=== PATIENT | male | born 1990 | race Caucasian/White ===

== ENCOUNTER 2020-01-05 19:59 | Emergency (ER) | payer SELFPAY ==
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
[2020-01-05] MEDS ORDERED: Sodium Chloride 0.9% 1,000 ML IV SCH (20:15)
--- NOTE | 2020-01-05 20:31 | CR ---
Chest: Portable supine view of the chest was obtained. Comparison: No prior chest imaging is available. Heart size and mediastinum are normal. Lungs are clear with no acute parenchymal change. No discrete bony abnormality is appreciated. Impression: 1. Nothing acute is seen on supine portable chest x-ray. Diagnostic code #1 This report was dictated in MDT
[2020-01-05 20:36] LABS: BLOOD UREA NITROGEN,BUN 12 mg/dL (7.0-18.0); CARBON DIOXIDE,CO2 23.7 mmol/L (21.0-32.0); CHLORIDE,CL 105 mmol/L (98-107); GLUCOSE RANDOM 125 mg/dL (74-106); POTASSIUM,K 3.5 mmol/L (3.5-5.1); SODIUM,NA 141 mmol/L (136-148)
--- NOTE | 2020-01-05 21:03 | CT ---
Head CT Technique: Multiple axial sections through the brain were obtained. Intravenous contrast was not utilized. Comparison: No prior intracranial imaging is available. Findings: Significant artifact is seen causing diminished details intracranially. Artifact most likely due to combination of external artifact and motion. Ventricles along with basal cisterns and sulci over the convexities are within normal limits for the patient's age. No discrete abnormal parenchymal densities are seen. No evidence of intracranial hemorrhage. No midline shift or mass-effect is definitely appreciated. Bone window settings were reviewed which shows no acute calvarial finding. Visualized mastoid sinuses and visualized paranasal sinuses show nothing acute. Impression: 1. Artifact as described above which diminishes details of the exam. 2. No gross abnormality is appreciated. If patient continues to have intracranial symptoms, follow-up study could be considered in the morning. Diagnostic code #3 This report was dictated in MDT
--- NOTE | 2020-01-05 22:09 | CT ---
CT cervical spine Technique: Multiple axial sections were obtained from above C1 inferiorly to the bottom of T2. Reconstructed sagittal and coronal images were obtained. Comparison: No previous study. Findings: Vertebral body heights and disc spaces are maintained. Vertebral bodies and posterior arches are intact. No fracture or subluxation is seen. No central canal stenosis or neural foraminal stenosis is seen. No abnormal subluxation is seen. Impression: 1. Nothing acute is appreciated on CT study of the cervical spine. Note: This exam has only now been received for final interpretation. Diagnostic code #1 This report was dictated in MDT
== END 2020-01-05 22:26 ==
LOC: MW.ED 19:59 → EDBD 19:59 → MW.ED 22:26
DX: S06.0X9A Concussion with loss of consciousness of unspecified duration, initial encounter (principal); S20.212A Contusion of left front wall of thorax, initial encounter; V47.5XXA Car driver injured in collision with fixed or stationary object in traffic accident, initial encounter
CPT/HCPCS: 36415; 70450; 71045; 72125; 80053; 80307; 85025; 93005; 99285; J7030